=== PATIENT | male | born 1995 | race Caucasian/White ===

== ENCOUNTER 2022-08-23 12:26 | Emergency (ER) | payer OTHER ==
[~2022-08-23] VITALS: Ht 167.6 cm; Wt 117.9 kg
[2022-08-23 12:27] VITALS: BP 164/104
[2022-08-23] MEDS ORDERED: KETOROLAC 15MG/ML VIAL (15MG/ML) IM ONE (13:30)
[2022-08-23] MEDS ORDERED: KETO10TA2 PO (14:59)
[2022-08-23] MEDS ORDERED: CYCL5TAB PO (14:59)
== END 2022-08-23 15:09 | disposition home or self-care (01) ==
LOC: EDH 12:26
DX: M62.830 Muscle spasm of back (principal); M54.2 Cervicalgia; V99.XXXA Unspecified transport accident, initial encounter; Y93.89 Activity, other specified; Y92.89 Other specified places as the place of occurrence of the external cause; Y99.8 Other external cause status
CPT/HCPCS: 99284; 72040; 72072; 96372; J1885